=== PATIENT | female | born 1970 | race Two or more races ===

== ENCOUNTER 2021-12-12 00:14 | Emergency (ER) | payer OTHER ==
[~2021-12-12] VITALS: Ht 157.5 cm; Wt 54.4 kg
--- NOTE | 2021-12-12 01:40 | NUR ---
TO ER BED 12. [id number] PT FOUND UNCONSCIOUS ON A [address] WAY. PIN POINT PUPILS. SHALLOW RESP. NARCAN GIVEN 2MG NASAL. PT IS AWAKE [id number] , NOT IN RESPIRATORY DISTRESS. STATES "DOESNT KNOW WHAT HAPPENED". CONNECTED TO MONITOR. AWAITING MD CHARLES.
--- NOTE | 2021-12-12 01:49 | NUR ---
PT UNABLE TO PROVIDE URINE AT THIS TIME. BEDPAN PROVIDED
--- NOTE | 2021-12-12 02:00 | NUR ---
PT REFUSED BLOODWORK, MADE AWARE
--- NOTE | 2021-12-12 04:48 | NUR ---
LAB AT BEDSIDE, PT AGREED TO BLOODWORK
[2021-12-12 05:09] LABS: BASOPHILS % (AUTO) 0.4 % (0.0-2.0); EOSINOPHILS % (AUTO) 0.3 % (0.0-6.0); HEMATOCRIT 40 % (33-45); HEMOGLOBIN 12.2 g/dL (11.5-14.8); LYMPHOCYTES # (AUTO) 1.4 K/uL (0.8-4.8); LYMPHOCYTES % (AUTO) 10.3 % (20.0-44.0); MEAN CORPUSCULAR HGB CONC 31 g/dl (31.0-36.0); MEAN CORPUSCULAR VOLUME 71 fL (82-100); MONOCYTES # (AUTO) 0.4 K/uL (0.1-1.30); MONOCYTES % (AUTO) 2.6 % (2.0-12.0); NEUTROPHILS # (AUTO) 11.5 K/uL (1.8-8.9); NEUTROPHILS % (AUTO) 86.4 % (43.0-81.0); PLATELET COUNT (AUTO) 243 K/uL (150-450); RED BLOOD CELL COUNT(AUTO) 5.56 MIL/uL (4.0-5.2); WHITE BLOOD COUNT (AUTO) 13.3 K/uL (4.3-11.0)
[2021-12-12 05:14] LABS: BILIRUBIN,URINE NEGATIVE (NEGATIVE); COLOR,URINE YELLOW (YELLOW); LEUKOCYTE ESTERASE ,URINE NEGATIVE (NEGATIVE); NITRITE, URINE NEGATIVE (NEGATIVE); PROTEIN,URINE TRACE mg/dl (NEGATIVE); UGLUCOSE NEGATIVE (NEGATIVE); UROBILINOGEN,URINE 0.2 EU/dL (0.2)
[2021-12-12 05:31] LABS: ALANINE AMINOTRANSFERASE 24 U/L (12-78); ALBUMIN 3.9 g/dL (3.4-5.0); ALKALINE PHOSPHATASE 122 U/L (46-116); ASPARTATE AMINOTRANSFERASE 32 U/L (15-37); BILIRUBIN,DIRECT 0.1 mg/dL (0.0-0.2); BILIRUBIN,TOTAL 0.5 mg/dL (0.2-1.0); CHLORIDE 103 mmol/L (98-107); CREATININE 0.8 mg/dL (0.6-1.3); GLUCOSE 118 mg/dL (74-106); POTASSIUM 3.9 mmol/L (3.5-5.1); SODIUM SERUM 136 mmol/L (136-145); TOTAL PROTEIN, SERUM 7.8 g/dL (6.4-8.2); UREA NITROGEN, BLOOD 16 mg/dL (7-18)
[2021-12-12 05:37] LABS: ACETAMINOPHEN < 2 ug/ml (10-30); ALCOHOL, BLOOD < 3 mg/dL (0-0)
[2021-12-12] MEDS ORDERED: ONDANSETRON 4 MG TAB.RAPDIS ONE (06:05)
--- NOTE | 2021-12-12 06:10 | NUR ---
Patient discharged to home in stable condition. Written and verbal after care instructions given. Patient verbalizes understanding of instruction.
[2021-12-12] MEDS ORDERED: ONDANSETRON 4 MG TAB.RAPDIS SL ONE (06:30)
[2021-12-12 06:40] LABS: CALCIUM, SERUM 9.2 mg/dL (8.5-10.1)
--- NOTE | 2021-12-12 08:00 | NUR ---
THE PATIENT IS ALREADY DISCHARGED BY THE OPERATIONS REPRESENTATIVE NURSE. THE PATIENT NOT IN ER ANYMORE.
[2021-12-12 09:21] VITALS: BP 131/76
== END 2021-12-12 09:21 | disposition home or self-care (01) ==
LOC: ER 00:17
DX: F15.129 Other stimulant abuse with intoxication, unspecified (principal); F14.129 Cocaine abuse with intoxication, unspecified; Z59.00 Homelessness unspecified
CPT/HCPCS: 36415; 80048; 80076; 80143; 80307; 80320; 81003; 85025; 99283; Q0162; G0480